=== PATIENT | male | born 1975 | race Two or more races ===

== ENCOUNTER 2024-05-11 01:12 | Inpatient (IN) | payer OTHER ==
[~2024-05-11] VITALS: Ht 182.9 cm; Wt 109.0 kg
[2024-05-11 01:31] LABS: Basophils # (auto) 0 10 ^3/uL (0-0.2); Basophils % (auto) 0.3 % (0.0-2.0); Eosinophils # (auto) 0.1 10 ^3/uL (0-0.8); Eosinophils % (auto) 1.7 % (0.0-7.0); Hematocrit 41.9 % (41.0-53.0); Hemoglobin 14.7 g/dL (13.5-17.5); Lymphocytes # (auto) 2.8 10 ^3/uL (0.4-5.4); Lymphocytes % (auto) 30.9 % (10.0-50.0); Mean Corpuscular Hemoglobin 33.5 pg (28.0-32.0); Mean Corpuscular Hgb Conc. 35.1 g/dL (32.0-36.0); Mean Corpuscular Volume 95.5 fL (80.0-100.0); Monocytes # (auto) 0.7 10 ^3/uL (0-1.3); Monocytes % (auto) 7.6 % (0.0-12.0); Neutrophils # (auto) 5.3 10 ^3/uL (1.6-8.6); Neutrophils % (auto) 59.5 % (37.0-80.0); Nucleated Red Blood Cells % 0.1 %; Platelet Count (auto) 179 10^3/uL (140-450); Red Blood Cells 4.38 10^6/uL (4.5-5.90); Red Cell Distribution Width 14.4 % (11.8-14.3)
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
[2024-05-11 01:41] LABS: Chloride 107 mmol/L (98-107); Potassium 3.7 mmol/L (3.5-5.1); Sodium 137 mmol/L (136-145)
[2024-05-11 01:42] LABS: Anion Gap 9 (5-15); Calcium 8.8 mg/dL (8.7-10.4); Carbon Dioxide 21 mmol/L (20-31)
[2024-05-11 01:47] LABS: Glucose 97 mg/dL (74-106)
[2024-05-11 01:48] LABS: BUN/Creatinine Ratio 7.5 (10.0-20.0); Blood Urea Nitrogen < 5 mg/dL (9-23)
[2024-05-11 02:00] VITALS: PULSE 87; RESP 19; O2SAT 93
--- NOTE | 2024-05-11 02:18 | ECG ---
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
--- NOTE | 2024-05-11 02:18 | ECG ---
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
[2024-05-11] MEDS: ASPirin 325 MG TAB ONE (02:29)
[2024-05-11] MEDS: NITROGLYCERIN 0.4 MG SL TAB SL ONE (02:29)
[2024-05-11] MEDS: ASPirin 81 mg TAB PO ONE (02:30)
[2024-05-11] MEDS: ASPirin 325 MG TAB PO STA (02:31)
[2024-05-11] MEDS: KETOROLAC TROMETH 30 MG/ML 1ML VIAL IV ONE (03:16)
--- NOTE | 2024-05-11 05:24 | DVH ---
Examination: CXR2 Clinical Indication: chest pain Comparison: None. Technique: Frontal and lateral radiograph of the chest was obtained. Findings: Mild cardiomegaly with mild bilateral hilar congestion. Mildly elevated left hemidiaphragm. Subtle blunting of the left costophrenic angle, probable minimal left pleural effusion. Increased left retr ocardiac opacity probable left lower lobe infiltrates. No acute osseous abnormality is seen. Degenerative changes in the bilateral acromioclavicular joint, mid and lower thoracic spine. Impression: Mild cardiomegaly with mild bilateral hilar congestion. Mildly elevated left hemidiaphragm. Subtle blunting of the left costophrenic angle, probable minimal left pleural effusion. Increased left retr ocardiac opacity probable left lower lobe infiltrates. Electronically Signed 05/11/2024 05:15 Ann Jimenez
[2024-05-11 08:00] VITALS: PULSE 75; RESP 18; TEMP 97.8; O2SAT 97
[2024-05-11] MEDS ORDERED: ACETAMINOPHEN 325 MG TAB PO PRN (09:00)
[2024-05-11] MEDS ORDERED: ONDANSETRON HCL 4 MG/2 ML VIAL IV PRN (09:00)
[2024-05-11] MEDS ORDERED: MORPHINE SULFATE INJ 2 MG/ml SYRG IV PRN (09:00)
[2024-05-11] MEDS ORDERED: NITROGLYCERIN 0.4 MG SL TAB SL PRN (09:00)
[2024-05-11] MEDS ORDERED: TEMAZEPAM 15 MG CAP PO PRN (09:00)
[2024-05-11 09:58] LABS: Urine Bacteria None Seen /hpf (None Seen)
[2024-05-11] MEDS: ASPirin 81 mg TAB PO SCH (10:00)
[2024-05-11] MEDS: AZITHROMYCIN 500MG/ 250ML 250 ML IV SCH (10:00)
[2024-05-11] MEDS: ENOXAPARIN SOD 40 MG/0.4 ML SYRINGE SC SCH (10:00)
[2024-05-11 10:15] LABS: Urine Blood Negative /uL (Negative); Urine Clarity Clear (Clear); Urine Color Light-Yellow (Yellow); Urine Protein, UAD Negative (Negative); Urine Specific Gravity 1.011 (1.001-1.035); Urine Urobilinogen Normal (Negative); Urine WBC <1 /hpf (0 - 3)
--- NOTE | 2024-05-11 10:17 | DVH ---
EXAM: CT CHEST WITHOUT CONTRAST HISTORY: pna COMPARISON: Chest radiograph dated 05/11/2024 TECHNIQUE: Axial images were obtained and reformatted in coronal and sagittal planes. All CT scans at this medical facility are performed using dose modulation techniques as appropriate to a performed exam including the following: Automated exposure control was utilized; adjustment of the MA and/or K V according to patient size; and use of iterative reconstruction technique. CT Dose: CTDI volume is 25.6 mGy. Dose-length product is 925.19 mGy*cm FINDINGS: Lower neck: Unremarkable. Cardiomediastinal: The heart is normal in size. Coronary artery calcification noted. Aorta is norm al in caliber. Lungs: No evidence of pneumonia. No lobar consolidation, pleural effusion or pneumothorax. Subsegmen negin atelectasis noted in the anterior basal segment of the right lower lobe. Bones and Soft Tissues: No acute abnormality. Flowing anterior ossification is noted in the thoracic spine at several levels with preservation of disc spaces contiguous compatible with diffuse idiopath ic skeletal hyperostosis. Partially seen metallic density in the right shoulder likely related to art hroplasty. Upper Abdomen: No acute abnormality. Hepatic steatosis. Other: None. IMPRESSION: 1. No acute abnormality is identified. Specifically, no evidence of pneumonia.
[2024-05-11 10:26] LABS: Amphetamine Screen, Urine Neg (NEGATIVE); Barbiturate Scree,Urine Neg (NEGATIVE); Benzodiazephine Screen, Urine Neg (NEGATIVE); Cocaine Screen, Urine Neg (NEGATIVE)
[2024-05-11 10:27] LABS: Cannabinoid Screen, Urine Pos (NEGATIVE); Opiate Scree,Urine Neg (NEGATIVE); Phencyclidine Screen, Urine Neg (NEGATIVE)
[2024-05-11 11:00] VITALS: BP 144/83; PULSE 78; RESP 17; O2SAT 97
--- NOTE | 2024-05-11 11:21 | DVHDS2 ---
Discharge Summary Date of Admission May 11, 2024 at 08:57 Date of Discharge: May 11, 2024 Admitting Diagnosis Chest pain Labs/Diagnostic Data: Laboratory Results Test 05/11/24 09:26 05/11/24 09:14 05/11/24 03:56 05/11/24 01:24 D-Dimer, Quantitative 0.45 mg/L FEU (0.0-0.49) Urine Color Light-yellow (Yellow) Urine Clarity Clear (Clear) Urine pH 5.0 (5.0-9.0) Urine Specific [place] 1.011 (1.001-1.035) Urine Protein Negative (Negative) Urine Ketones Negative (Negative) Urine Blood Negative /uL (Negative) Urine Nitrite Negative (Negative) Urine Bilirubin Negative (Negative) Urine Urobilinogen Normal mg/dL (Negative) Urine Leukocyte Esterase Negative /uL (Negative) Urine RBC <1 /hpf (0 - 3) Urine WBC <1 /hpf (0 - 3) Urine Squamous Epithelial Cells None seen /hpf (<5) Urine Bacteria None seen /hpf (None Seen) Urine Glucose Normal mg/dL (Normal) Urine Opiates Screen Neg (NEGATIVE) Urine Fentanyl Screen Neg (NEGATIVE) Urine Barbiturates Screen Neg (NEGATIVE) Urine Phencyclidine Screen Neg (NEGATIVE) Urine Amphetamines Screen Neg (NEGATIVE) Urine Benzodiazepines Screen Neg (NEGATIVE) Urine Cocaine Screen Neg (NEGATIVE) Urine Cannabinoids Screen Pos (NEGATIVE) Troponin I High Sensitivity < 3 ng/L (</=54) White Blood Count 9.0 10^3/uL (4.4-10.8) Red Blood Count 4.38 10^6/uL (4.5-5.90) Hemoglobin 14.7 g/dL (13.5-17.5) Hematocrit 41.9 % (41.0-53.0) Mean Corpuscular Volume 95.5 fL (80.0-100.0) Mean Corpuscular Hemoglobin 33.5 pg (28.0-32.0) Mean Corpuscular Hemoglobin Concent 35.1 g/dL (32.0-36.0) Red Cell Distribution Width 14.4 % (11.8-14.3) Platelet Count 179 10^3/uL (140-450) Mean Platelet Volume 8.2 fL (6.9-10.8) Neutrophils (%) (Auto) 59.5 % (37.0-80.0) Lymphocytes (%) (Auto) 30.9 % (10.0-50.0) Monocytes (%) (Auto) 7.6 % (0.0-12.0) Eosinophils (%) (Auto) 1.7 % (0.0-7.0) Basophils (%) (Auto) 0.3 % (0.0-2.0) Neutrophils # (Auto) 5.3 10 ^3/uL (1.6-8.6) Lymphocytes # (Auto) 2.8 10 ^3/uL (0.4-5.4) Monocytes # (Auto) 0.7 10 ^3/uL (0-1.3) Eosinophils # (Auto) 0.1 10 ^3/uL (0-0.8) Basophils # (Auto) 0 10 ^3/uL (0-0.2) Nucleated Red Blood Cells 0.1 % Sodium Level 137 mmol/L (136-145) Potassium Level 3.7 mmol/L (3.5-5.1) Chloride Level 107 mmol/L (98-107) Carbon Dioxide Level 21 mmol/L (20-31) Anion Gap 9 (5-15) Blood Urea Nitrogen < 5 mg/dL (9-23) Creatinine 0.67 mg/dL (0.700-1.30) Glomerular Filtration Rate Calc 113 mL/min (>90) BUN/Creatinine Ratio 7.5 (10.0-20.0) Serum Glucose 97 mg/dL (74-106) Calcium Level 8.8 mg/dL (8.7-10.4) B-Type Natriuretic Peptide 9.92 pg/mL (0-100) Other Laboratory Tests 05/11/24 01:24 Brief Hx & Hospital Course: 49-year-old male with a history of hypertension was admitted for chest pain. Patient was found to have mild pleural effusion with could contribute to patient's chest pain. Patient was having workup for CHF in which I ordered echocardiogram. Patient became anxious and decided to leave against medical advice. Patient was educated on risk of leaving however he still decided to leave. Patient was supposed to be seen by Cardiology and photo finish photographer he was given IV antibiotics in the emergency room Condition at Discharge: Undetermined Final Diagnosis/Problems List 1. Chest pain likely from pneumonia versus pleural effusion Cardiac consult, monitor EKG, obtain echo 2. Pleural effusion Obtain echo to rule out CHF 3. Pneumonia R.O 4. Obesity 5. Hypertension Monitor blood pressure 6. Left BKA Discharge Disposition: AMA Discharge Instruct/Medications Follow Up/Referral: PCP and cardiology within 1 week Discharge Statement: "Patient was advised to return to the ER or call 911 if any headaches, dizziness, shortness of breath, chest pain, abdominal pain, bleeding, fevers, or worsening of medical condition. Patient was counseled about treatment plan, medications, possible side effects, patientverbalized understanding. All questions were answered to the best of my ability. This discharge took greater then 30 minutes in planning, reviewing documentation, counseling the patient, and discussing with other team members." ASSESSMENT ASSESSMENT Assessment ELOISA HIDALGOP May 11, 2024 11:21
--- NOTE | 2024-05-11 11:21 | DVHHP2 ---
History of Present Illness History of Present Illness 49-year-old male presents to the ER for chest pain with associated shortness of breath patient does have history of hypertension. Patient denies any fever chills or abdominal pain Review of Systems Constitutional: No: Fever, Chills, Sweats, Weakness, Malaise, Other Respiratory: Cough, Shortness of breath Cardiovascular: Chest Pain; No: Palpitations, Orthopnea, Paroxysmal Noc. Dyspnea, Edema, Lt Headedness, Other Gastrointestinal: No: Nausea, Vomiting, Abdominal Pain, Diarrhea, Constipation, Melena, Hematochezia, Other Musculoskeletal: No: other, neck pain, shoulder pain, arm pain, back pain, hand pain, leg pain, foot pain Allergies: Coded Allergies: NO KNOWN ALLERGIES (Unverified , 05/11/24) Medications Current Medications Medications Dose Ordered Sig/Nivia Route Start Time Stop Time Status Last Admin Dose Admin Temazepam 15 mg QHSP PRN PO 05/11/24 09:00 Ondansetron HCl 4 mg Q4HP PRN IV 05/11/24 09:00 Enoxaparin Sodium 40 mg DAILY SC 05/11/24 10:00 Acetaminophen 650 mg Q6HP PRN PO 05/11/24 09:00 Nitroglycerin 0.4 mg Q5MINP PRN SL 05/11/24 09:00 Morphine Sulfate 2 mg Q30M PRN IV 05/11/24 09:00 Aspirin 81 mg DAILY PO 05/11/24 10:00 Azithromycin 250 ml @ 125 mls/hr DAILY IV 05/11/24 10:00 Exam Vital Signs Vital Signs Date Time Temp Pulse Resp B/P (MAP) Pulse Ox O2 Delivery O2 Flow Rate FiO2 05/11/24 10:00 77 17 143/85 (104) 97 05/11/24 08:00 97.8 97.8 05/11/24 02:00 Room Air* 0 21 General Appearance: Alert, Oriented X3, Cooperative, No acute distress Respiratory: Clear to auscultation, Normal air movement Cardiovascular: Regular rate, Normal S1, Normal S2, No murmurs Abdominal: Normal bowel sounds, Soft, No tenderness, No hepatospenomegaly Labs/Xrays Labs Test 05/11/24 09:26 05/11/24 09:14 05/11/24 03:56 05/11/24 01:24 Range/Units D-Dimer, Quantitative 0.45 0.0-0.49 mg/L FEU Urine Color Light-yellow Yellow Urine Clarity Clear Clear Urine pH 5.0 5.0-9.0 Urine Specific [place] 1.011 1.001-1.035 Urine Protein Negative Negative Urine Ketones Negative Negative Urine Blood Negative Negative /uL Urine Nitrite Negative Negative Urine Bilirubin Negative Negative Urine Urobilinogen Normal Negative mg/dL Urine Leukocyte Esterase Negative Negative /uL Urine RBC <1 0 - 3 /hpf Urine WBC <1 0 - 3 /hpf Urine Squamous Epithelial Cells None seen <5 /hpf Urine Bacteria None seen None Seen /hpf Urine Glucose Normal Normal mg/dL Urine Opiates Screen Neg NEGATIVE Urine Fentanyl Screen Neg NEGATIVE Urine Barbiturates Screen Neg NEGATIVE Urine Phencyclidine Screen Neg NEGATIVE Urine Amphetamines Screen Neg NEGATIVE Urine Benzodiazepines Screen Neg NEGATIVE Urine Cocaine Screen Neg NEGATIVE Urine Cannabinoids Screen Pos NEGATIVE Troponin I High Sensitivity < 3 L </=54 ng/L White Blood Count 9.0 4.4-10.8 10^3/uL Red Blood Count 4.38 L 4.5-5.90 10^6/uL Hemoglobin 14.7 13.5-17.5 g/dL Hematocrit 41.9 41.0-53.0 % Mean Corpuscular Volume 95.5 80.0-100.0 fL Mean Corpuscular Hemoglobin 33.5 H 28.0-32.0 pg Mean Corpuscular Hemoglobin Concent 35.1 32.0-36.0 g/dL Red Cell Distribution Width 14.4 H 11.8-14.3 % Platelet Count 179 140-450 10^3/uL Mean Platelet Volume 8.2 6.9-10.8 fL Neutrophils (%) (Auto) 59.5 37.0-80.0 % Lymphocytes (%) (Auto) 30.9 10.0-50.0 % Monocytes (%) (Auto) 7.6 0.0-12.0 % Eosinophils (%) (Auto) 1.7 0.0-7.0 % Basophils (%) (Auto) 0.3 0.0-2.0 % Neutrophils # (Auto) 5.3 1.6-8.6 10 ^3/uL Lymphocytes # (Auto) 2.8 0.4-5.4 10 ^3/uL Monocytes # (Auto) 0.7 0-1.3 10 ^3/uL Eosinophils # (Auto) 0.1 0-0.8 10 ^3/uL Basophils # (Auto) 0 0-0.2 10 ^3/uL Nucleated Red Blood Cells 0.1 % Sodium Level 137 136-145 mmol/L Potassium Level 3.7 3.5-5.1 mmol/L Chloride Level 107 98-107 mmol/L Carbon Dioxide Level 21 20-31 mmol/L Anion Gap 9 5-15 Blood Urea Nitrogen < 5 L 9-23 mg/dL Creatinine 0.67 L 0.700-1.30 mg/dL Glomerular Filtration Rate Calc 113 >90 mL/min BUN/Creatinine Ratio 7.5 L 10.0-20.0 Serum Glucose 97 74-106 mg/dL Calcium Level 8.8 8.7-10.4 mg/dL B-Type Natriuretic Peptide 9.92 0-100 pg/mL Assessment/Plan Assessment/Plan 1. Chest pain likely from pleural effusion Cardiac consult, monitor EKG, obtain echo 2. Pleural effusion Obtain echo to rule out CHF 3. Pneumonia R.O 4. Obesity 5. Hypertension Monitor blood pressure 6. Left BKA Plan discussed with: Patient My Orders Orders - ELOISA HIDALGO FRINGE MAKER Procedure Category Date Status Time Admit ADMIT 05/11/24 Transmitted 08:57 2 Gm Sodium Diet DIET 05/11/24 Transmitted Breakfast Temazepam (Restoril) PHA 05/11/24 In Process 09:00 Ondansetron Hcl PHA 05/11/24 In Process (Zofran) 09:00 Enoxaparin Sodium PHA 05/11/24 In Process (Lovenox) 10:00 Echo 2d Mode Cardiac US 05/11/24 Logged DOP 08:57 Condition: Fair KEVON 05/11/24 In Process 08:57 Acetaminophen Tablet PHA 05/11/24 In Process (Tylenol Tablet) 09:00 Nitroglycerin PHA 05/11/24 In Process Sublingual (Ntrostat 09:00 Morphine Sulfate PHA 05/11/24 In Process Injection 09:00 Stat Ekg For Chest KEVON 05/11/24 In Process Pain 08:57 Notify Of Changes KEVON 05/11/24 In Process From Base 08:57 Storage Garage Manager For KEVON 05/11/24 In Process 24 Hours 08:57 Emergency Dysrhythmia KEVON 05/11/24 In Process Protocol 08:57 Rhythm Strips Once KEVON 05/11/24 In Process Every Shift 08:57 Oxygen By Nasal RT 05/11/24 Transmitted Cannula 08:57 *Consult Dr[address] Ferrer CONS 05/11/24 Transmitted 08:59 Aspirin Tablet PHA 05/11/24 In Process 10:00 Azithromycin 500mg/ PHA 05/11/24 In Process 250ml (Zithromax 50 10:[address] 05/11/24 Resulted 09:00 *Consult CONS 05/11/24 Transmitted / 09:04 Date of Service: May 11, 2024 Billing Provider: JUAN MORELOS MD Common Visit Codes: [id number] INP/OBS CARE (MOD) ELOISA HIDALGO FRINGE MAKER May 11, 2024 11:21
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
--- NOTE | 2024-05-11 20:28 | ECG ---
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
--- NOTE | 2024-05-12 09:44 | DVHSR ---
APPROVED REPORT EXAM: Two-dimensional and M-mode echocardiogram with Doppler and color Doppler. Blood Pressure: 111/76 mmHg INDICATION CHF RISK FACTORS Height: 6', Weight: 240 DIMENSIONS LVDd4.9 (3.8-5.7cm)LA (2D)4.6 (1.9-4.0cm)Aortic Root3.5 (2.0-3.7cm) LVDs3.4 (2.5-4.0cm)LA (MM) (1.9-4.0cm)Aortic Cusp Exc1.9 (1.5-2.0cm) EF (%) 57.0 (55-70%)Rt. Atrium (1.9-4.0cm)Asc. Aorta cm IVSd1.0 (0.7-1.1cm)RV (D) (1.8-2.4cm) PWd1.0 (0.7-1.1cm) Mitral Valve MitralMitral Stenosis E wave0.90m/sMV Mean GR.mmHg A wave0.70m/sMV Peak GR.mmHg E/A ratio1.32D MVAcm2 Aortic Valve Aortic ValveAortic Stenosis V10.80m/Angelia Mean GR.3mmHg V21.20m/Angelia Peak GR.6mmHg LVOT Diameter2.5 (1.8-2.4cm)Doppler AVA3.27cm2 Pulmonic Valve V20.50m/s Conclusion Normal left ventricular size and dimension. Normal left ventricular systolic function with estimated ejection fraction 55%. There is a grade 1 diastolic dysfunction Normal right ventricular size and dimension. Normal right ventricular systolic function. Normal biatrial size and dimension. Normal aortic valve structure and function. Normal mitral valve structure and function. Normal tricuspid valve structure and function. The pulmonary valve is grossly normal. No pericardial effusion.
== END 2024-05-11 11:18 | disposition left against medical advice (07) | DRG 139 ==
LOC: ER 01:12 → EDBD 01:12 → TELE 08:57
PROVIDERS: ADMIT Nurse Practitioner Family; ATTEND Nurse Practitioner Family
DX: J18.9 Pneumonia, unspecified organism (principal); I11.0 Hypertensive heart disease with heart failure; I50.9 Heart failure, unspecified; J90 Pleural effusion, not elsewhere classified; E66.9 Obesity, unspecified; J98.11 Atelectasis; Z53.29 Procedure and treatment not carried out because of patient's decision for other reasons; Z89.512 Acquired absence of left leg below knee; Z68.32 Body mass index [BMI] 32.0-32.9, adult
CPT/HCPCS: 36415; 71046; 71250; 80048; 80307; 81001; 83880; 84484; 85025; 85379; 93005; 93306; 99291; G0378; J1885